=== PATIENT | male | born 1965 ===

== ENCOUNTER 2021-07-27 10:51 | Inpatient (IN) | payer SELFPAY ==
[~2021-07-27] VITALS: Ht 167.6 cm; Wt 93.1 kg
[2021-07-27] VITALS (241 sets, daily range): BP systolic 104–147; BP diastolic 86–88; PULSE 125–134; TEMP 97.5–99.6; O2SAT 69–100
[2021-07-27] MEDS ORDERED: MOTRIN 200200 MG/TAB PO (12:37)
[2021-07-27 14:45] LABS: HEMATOCRIT 40.1 % (42.0-52.0); HEMOGLOBIN 14.4 g/dl (13.5-18.0); MEAN CELL VOLUME 96 fl (80.0-100.0); MEAN CORPUSCULAR HEMOGLOBIN 34 pg (27-31); MEAN CORPUSCULAR HGB CONC 36 g/dl (33.0-37.0); MEAN PLATELET VOLUME 11.5 fl (7.4-10.4); PLATELET COUNT 51 K/mm3 (130-400); RED BLOOD COUNT 4.18 M/mm3 (4.20-5.60); REDCELL DISTRIBUTION WIDTH-CV 12.1 % (11.5-14.5)
[2021-07-27 14:56] LABS: INR 1.3 (0.8-3.0); PROTHROMBIN TIME 14.5 SECONDS (9.7-12.8)
[2021-07-27 14:58] LABS: C-REACTIVE PROTEIN 26.06 mg/dL (0.00-0.50); CALCIUM 8.5 mg/dL (8.4-10.2); CREATININE, serum 2.67 mg/dL (0.72-1.25); MAGNESIUM 2.1 mg/dL (1.6-2.6); POTASSIUM 3.4 mmol/L (3.5-4.5)
[2021-07-27 14:59] LABS: PARTIAL THROMBOPLASTIN TIME 24.7 SECONDS (26.0-37.0)
[2021-07-27 15:20] LABS: TSH w REFLEX 0.477 uIU/mL (0.350-4.940)
[2021-07-27 15:23] LABS: TROPONIN-I 0.041 ng/mL (0.00-0.033)
[2021-07-27 15:34] LABS: BAND 44 % (0-10); LYMPHOCYTE 6 % (20.0-51.0); NEUTROPHILS 41 % (42.0-75.2); PLATELET ESTIMATE DECREASED (NORMAL)
[2021-07-27 20:20] LABS: COLLECTION METHOD CLEAN CATCH
[2021-07-27 20:34] LABS: MUCOUS Present (NOT PRESENT); PH 5 (5-8); SQUAMOUS EPITHELIAL 0-2 /hpf (0-10); URINE APPEARANCE Cloudy (CLEAR/HAZY); URINE BACTERIA None Seen /hpf (NONE SEEN); URINE BILIRUBIN Positive (NEGATIVE); URINE BLOOD 2+ (NEGATIVE); URINE COLOR Amber (YELLOW); URINE GLUCOSE Negative (NEGATIVE); URINE KETONE 1+ (NEGATIVE); URINE LEUKOCYTE ESTERASE Negative (NEGATIVE); URINE NITRATE Negative (NEGATIVE); URINE PROTEIN(semi-quant) 2+ (NEGATIVE)
[2021-07-27 20:36] LABS: TRICYCLIC ANTIDEPRESS URINE NEGATIVE
[2021-07-28] VITALS (518 sets, daily range): BP systolic 100–148; BP diastolic 68–117; PULSE 92–140; TEMP 97.1–99.2; O2SAT 59–100
[2021-07-28 04:22] LABS: HEMATOCRIT 37.3 % (42.0-52.0); HEMOGLOBIN 13.3 g/dl (13.5-18.0); MEAN CELL VOLUME 98 fl (80.0-100.0); MEAN CORPUSCULAR HEMOGLOBIN 35 pg (27-31); MEAN CORPUSCULAR HGB CONC 36 g/dl (33.0-37.0); MEAN PLATELET VOLUME 11.9 fl (7.4-10.4); RED BLOOD COUNT 3.82 M/mm3 (4.20-5.60); REDCELL DISTRIBUTION WIDTH-CV 12.3 % (11.5-14.5)
[2021-07-28 04:38] LABS: INR 1.4 (0.8-3.0); PLATELET COUNT 41 K/mm3 (130-400); PROTHROMBIN TIME 15.7 SECONDS (9.7-12.8)
[2021-07-28 04:40] LABS: ALBUMIN 2.7 gm/dL (3.5-5.0); BILIRUBIN,TOTAL 11.7 mg/dL (0.2-1.2); CHOLESTEROL RISK RATIO 19.4; CREATININE, serum 2.93 mg/dL (0.72-1.25); POTASSIUM 3.6 mmol/L (3.5-4.5); TOTAL PROTEIN 5.6 gm/dL (6.2-8.1)
[2021-07-28 04:53] LABS: BAND 35 % (0-10); LYMPHOCYTE 8 % (20.0-51.0); NEUTROPHILS 44 % (42.0-75.2); PLATELET ESTIMATE DECREASED (NORMAL)
[2021-07-28 04:54] LABS: STOMATOCYTE 1+
[2021-07-28 04:56] LABS: TROPONIN-I 0.035 ng/mL (0.00-0.033)
[2021-07-29] VITALS (635 sets, daily range): BP systolic 117–158; BP diastolic 63–97; PULSE 87–109; TEMP 97.5–99.4; O2SAT 84–100
[2021-07-29 05:53] LABS: HEMOGLOBIN 12.3 g/dl (13.5-18.0); MEAN CELL VOLUME 98 fl (80.0-100.0); MEAN CORPUSCULAR HEMOGLOBIN 35 pg (27-31); MEAN CORPUSCULAR HGB CONC 36 g/dl (33.0-37.0); MEAN PLATELET VOLUME 12.1 fl (7.4-10.4); PLATELET COUNT 60 K/mm3 (130-400); RED BLOOD COUNT 3.51 M/mm3 (4.20-5.60); REDCELL DISTRIBUTION WIDTH-CV 13.1 % (11.5-14.5)
[2021-07-29 05:59] LABS: INR 1.3 (0.8-3.0); PROTHROMBIN TIME 14.1 SECONDS (9.7-12.8)
[2021-07-29 06:08] LABS: ALBUMIN 2.5 gm/dL (3.5-5.0); BILIRUBIN,TOTAL 11.5 mg/dL (0.2-1.2); CALCIUM 7.6 mg/dL (8.4-10.2); CREATININE, serum 3.53 mg/dL (0.72-1.25); MAGNESIUM 2.6 mg/dL (1.6-2.6); POTASSIUM 3.9 mmol/L (3.5-4.5); TOTAL PROTEIN 5.7 gm/dL (6.2-8.1)
[2021-07-29 06:22] LABS: HEMATOCRIT 34.3 % (42.0-52.0)
[2021-07-29 06:32] LABS: BAND 36 % (0-10); EOSINOPHIL 1 % (0-4); LYMPHOCYTE 14 % (20.0-51.0); NEUTROPHILS 42 % (42.0-75.2); PLATELET ESTIMATE DECREASED (NORMAL)
[2021-07-29 12:40] LABS: CREATININE, serum 2.94 mg/dL (0.72-1.25); SODIUM 129 mmol/L (136-145)
[2021-07-30] VITALS (362 sets, daily range): BP systolic 129–149; BP diastolic 87–104; PULSE 103–125; TEMP 98.1–98.7; O2SAT 76–100
[2021-07-30 06:40] LABS: HEMOGLOBIN 11.6 g/dl (13.5-18.0); MEAN CELL VOLUME 98 fl (80.0-100.0); MEAN CORPUSCULAR HEMOGLOBIN 35 pg (27-31); MEAN CORPUSCULAR HGB CONC 35 g/dl (33.0-37.0); MEAN PLATELET VOLUME 11.6 fl (7.4-10.4); PLATELET COUNT 71 K/mm3 (130-400); RED BLOOD COUNT 3.36 M/mm3 (4.20-5.60); REDCELL DISTRIBUTION WIDTH-CV 13.3 % (11.5-14.5)
[2021-07-30 06:53] LABS: ALBUMIN 2.2 gm/dL (3.5-5.0); BILIRUBIN,TOTAL 10.7 mg/dL (0.2-1.2); CALCIUM 7.5 mg/dL (8.4-10.2); CREATININE, serum 1.11 mg/dL (0.72-1.25); MAGNESIUM 2.4 mg/dL (1.6-2.6); TOTAL PROTEIN 5.3 gm/dL (6.2-8.1)
[2021-07-30 07:13] LABS: INR 1.2 (0.8-3.0); PROTHROMBIN TIME 13.8 SECONDS (9.7-12.8)
[2021-07-30 07:56] LABS: BAND 6 % (0-10); EOSINOPHIL 1 % (0-4); LYMPHOCYTE 8 % (20.0-51.0); NEUTROPHILS 78 % (42.0-75.2)
[2021-07-30 07:58] LABS: PLATELET ESTIMATE DECREASED (NORMAL)
[2021-07-30 07:59] LABS: TARGET CELLS 1+
[2021-07-31] VITALS (8 sets, daily range): BP systolic 128–157; BP diastolic 89–97; PULSE 103–123; TEMP 97.9–99.7
[2021-07-31 09:31] LABS: HEMOGLOBIN 12.1 g/dl (13.5-18.0); MEAN CELL VOLUME 95 fl (80.0-100.0); MEAN CORPUSCULAR HEMOGLOBIN 35 pg (27-31); MEAN CORPUSCULAR HGB CONC 36 g/dl (33.0-37.0); MEAN PLATELET VOLUME 10.8 fl (7.4-10.4); PLATELET COUNT 97 K/mm3 (130-400); REDCELL DISTRIBUTION WIDTH-CV 13.4 % (11.5-14.5)
[2021-07-31 09:42] LABS: HEMATOCRIT 33.2 % (42.0-52.0)
[2021-07-31 09:47] LABS: ALBUMIN 2.2 gm/dL (3.5-5.0); BILIRUBIN,TOTAL 10.2 mg/dL (0.2-1.2); CALCIUM 8.1 mg/dL (8.4-10.2); CREATININE, serum 0.69 mg/dL (0.72-1.25); POTASSIUM 3.2 mmol/L (3.5-4.5); TOTAL PROTEIN 5.7 gm/dL (6.2-8.1)
[2021-07-31 10:17] LABS: BAND 24 % (0-10); LYMPHOCYTE 19 % (20.0-51.0); NEUTROPHILS 48 % (42.0-75.2); PLATELET ESTIMATE DECREASED (NORMAL)
[2021-07-31 17:52] LABS: HEMOGLOBIN 11.3 g/dl (13.5-18.0)
[2021-07-31 17:55] LABS: HEMATOCRIT 32.2 % (42.0-52.0)
[2021-08-01 03:16] VITALS: BP 134/89; PULSE 114; TEMP 99.8
[2021-08-01 06:07] LABS: HEMOGLOBIN 11.9 g/dl (13.5-18.0); MEAN CELL VOLUME 99 fl (80.0-100.0); MEAN CORPUSCULAR HEMOGLOBIN 34 pg (27-31); MEAN CORPUSCULAR HGB CONC 35 g/dl (33.0-37.0); MEAN PLATELET VOLUME 10.8 fl (7.4-10.4); PLATELET COUNT 103 K/mm3 (130-400); RED BLOOD COUNT 3.48 M/mm3 (4.20-5.60); REDCELL DISTRIBUTION WIDTH-CV 13.9 % (11.5-14.5)
[2021-08-01 06:08] LABS: HEMATOCRIT 34.3 % (42.0-52.0)
[2021-08-01 06:22] LABS: CALCIUM 8.3 mg/dL (8.4-10.2); CREATININE, serum 0.69 mg/dL (0.72-1.25); POTASSIUM 3.3 mmol/L (3.5-4.5)
[2021-08-01 07:07] LABS: BAND 28 % (0-10); EOSINOPHIL 1 % (0-4); LYMPHOCYTE 8 % (20.0-51.0); METAMYELOCYTE 1 % (0-0); NEUTROPHILS 53 % (42.0-75.2); PLATELET ESTIMATE DECREASED (NORMAL)
[2021-08-01 08:27] VITALS: BP 167/88; PULSE 110; TEMP 98.3
[2021-08-01] MEDS ORDERED: PROTONIX 40MG T40 MG PO (09:44)
== END 2021-08-01 11:30 | disposition home or self-care (01) | DRG 871 ==
LOC: ICU 10:51 → MEDICAL 07-30 14:47
PROVIDERS: Student in an Organized Health Care Education/Training Program; ADMIT Internal Medicine
PROC: 02HV33Z Insertion of Infusion Device into Superior Vena Cava, Percutaneous Approach (ICD-10-PCS; principal; 2021-07-27)
PROC: 02HV33Z Insertion of Infusion Device into Superior Vena Cava, Percutaneous Approach (ICD-10-PCS; 2021-07-28)
DX: A41.9 Sepsis, unspecified organism (principal); K85.20 Alcohol induced acute pancreatitis without necrosis or infection; U07.1 COVID-19; I21.A1 Myocardial infarction type 2; N17.9 Acute kidney failure, unspecified; E87.1 Hypo-osmolality and hyponatremia; E87.2 Acidosis; N39.0 Urinary tract infection, site not specified; F10.131 Alcohol abuse with withdrawal delirium; B17.9 Acute viral hepatitis, unspecified; R65.20 Severe sepsis without septic shock; D69.6 Thrombocytopenia, unspecified; E83.42 Hypomagnesemia; E87.6 Hypokalemia; R74.01 Elevation of levels of liver transaminase levels; R73.9 Hyperglycemia, unspecified; R00.0 Tachycardia, unspecified; F17.210 Nicotine dependence, cigarettes, uncomplicated; Z73.0 Burn-out
CPT/HCPCS: 99233-AI; 99239; C1751; C9113; J1815; J2060; J2543; J3010; J3475; J3480; J7030; J7120; Q9967